=== PATIENT | female | born 2000 | race Caucasian/White ===

== ENCOUNTER → 2023-12-13 | Outpatient (CLI) | payer OTHER, SELFPAY ==
--- OUTSIDE RECORDS SUMMARY | 2023-12-13 10:02 | XMS RPT_ITS | CCD ---
Author Name Unknown Address [id number] [place] [address] Organization [facility] Care Team Providers Care Methods And Procedures Analyst Name Role Phone MIGUEL MONTERROSO Unavailable Unavailable REFERRED, SELF Unavailable Unavailable MARIELENA GARCIA Unavailable ARIANA CHOU Primary Care Unavailable HUBERT MARTINS Admitting Unavailable EFFIE COLLINS, DR ARIANA Crump Attending Estrada CHOU MD, DR ARIANA Crump Primary Care Estrada CHOU MD, DR ARIANA Crump Attending Estrada CHOU MD, DR ARIANA Crump Primary Care Estrada maradiaga Problems Active Problems Problem Classification Problem Date Documented Da te Episodic/Chronic Allergic reactions (2 sources) Other skin changes due to chronic exposure to nonionizing radiation; Translations: [Other skin changes due to chronic exposure to nonionizing radiation] Onset: 09-01-2022 Episodic Genitourinary symptoms and ill-defined conditions (2 sources) Frequency of micturition; Translations: [Frequency of micturition] Onset: 03-02-2023 Episodic Menstrual disorders (2 sources) Amenorrhea, unspecified; Translations: [Amenorrhea, unspecified] Onset: 09-14-2022 Chronic Past or Other Problems Problem Classification Problem Date Documented Da te Episodic/Chronic Other skin disorders (4 sources) Acne vulgaris; Translations: [Acne vulgaris] Onset: 09-01-2022 Episodic Results Test Name Value Interpretation Reference Range Facil ity Encounters Encounter Date Encounter Type Care Provider Facility Start: 03-02-2023 End: 03-07-[address] ARIANA CHOU MD Facility:[facility] Internal Medicine Start: 09-14-2022 End: 09-19-[address] ARIANA CHOU MD Facility:[facility] Start: 09-14-2022 End: 09-19-2022 Encounter for general adult medical examination without abnormal findings DR ARIANA CHOU MD Facility:[facility] Start: 09-01-2022 End: 09-05-2022 ambulatory ARIANA CHOU [facility] Start: 07-23-2017 End: 07-23-2017 Ambulatory MIGUEL MONTERROSO [facility] Payers Date Payer Category Payer Unknown [id number] 2022 Unknown [id number] 1999 Unknown [id number] 1999 Unknown [id number] 1999 Unknown [id number] Unknown [id number] Clinical Note 03-03-2023 Note Date & Type Note Facility 03-03-2023 Note . MICRO - Microbiology PROCEDURE: Urine Culture [*1] SOURCE: Urine BODY SITE: COLLECTED DATE/TIME: 03/02/2023 10:44 EDT RECEIVED DATE/TIME: 03/02/2023 11:56 EDT START DATE/TIME: 03/02/2023 11:56 EDT FREE TEXT SOURCE: FINAL REPORTS Final Report [] Verified Date/Time/Personnel: 03/03/2023 14:21 EDT <10,000 cfu/ml. No Significant growth. Sensitivity not indicated. Performing Locations *1: This test was performed at: [facility], [address] [place] [address], [address] [place] [address] ([place]) Summary Purpose Family History No Family History Records FoundNo Family History Records FoundNo Family History Records Found Advance Directives No Advanced Directives Records FoundNo Advanced Directives Records FoundNo Advanced Directives Records Found Additional Source Comments INFORMATION SOURCE (unrecogn ized section and content) DATE CREATED AUTHOR AUTHOR'S ORGANIZ ATION 09/05/2022 [facility] DATE CREATED AUTHOR AUTHOR'S ORGANIZ ATION 04/06/2023 Count includes the [facility] ([place]) FOR RECORDS PERTAINING TO PATIENTS WHO ARE OR HAVE BEEN ENROLLED IN A CHEMICAL DEPENDENCY/SUBSTANCEABUSE PROGRAM, SOME INFORMATION MAY BE OMITTED. This clinical summary was aggregated from multiple sources. Caution should be exercised in using it in the provision of clinical care. This summary normalizes information from multiple sources, and as a consequence, information in this document may materially change the coding, format and clinical context of patient data. In addition, data may be omitted in some cases. CLINICAL DECISIONS SHOULD BE BASED ON THE PRIMARY CLINICAL RECORDS. [facility] [facility]. provides no warranty or guarantee of the accuracy or completeness of information in this document.
[2023-12-13 10:03] LABS: Absolute Lymphocyte Count 1.67 X10^3/uL (0.83-4.51); Absolute Neutrophil Count 5.8 X10^3/uL (2.0-7.7); Basophil# 0.07 X10^3/uL; Basophil% 0.8 % (0-1); Eosinophil# 0.09 X10^3/uL; Eosinophils% 1.1 % (0-5); Hematocrit 42.7 % (37-47); Hemoglobin 13.9 g/dL (12.0-15.0); Lymphocyte # 1.67 X10^3/ul (0.83-4.51); Lymphocyte % 20.1 % (19-41); Mean Corp Hgb Conc 32.6 g/dL (32-36); Mean Corpuscular Hgb 29.7 pg (27.0-32.0); Mean Corpuscular Volume 91.2 fL (81-99); Mean Platelet Vol. 10.4 fl (6.2-12.0); Monocyte# 0.64 X10^3/uL; Monocyte% 7.7 % (0-10); NRBC Flagged by Analyzer 0 % (0-5); Neutrophil # 5.83 X10^3/uL (2.7-7.7); Neutrophil % 70.1 % (47-70); Platelet Count 261 K/mm3 (150-450); RBC Distribution Width CV 12.6 % (11.6-14.6); RBC Distribution Width SD 41.9 fl (35.1-43.9); Red Blood Count 4.68 M/mm3 (4.2-5.4); White Blood Count 8.3 K/mm3 (4.4-11.0)
[2023-12-13 11:23] LABS: HIV - WCH Non-Reactive (Nonreactive); Hepatitis B Surface Antigen Non-Reactive (Nonreactive); Hepatitis C Antibody Non-Reactive (Nonreactive); Rubella IgG Reactive (Nonreactive); Syphilis Antibodies Non-reactive
[2023-12-15 03:07] LABS: Chlamydia By Nucleic Acid AMP Negative (Negative); Gonococcus By Nucleic Acid AMP Negative (Negative)
[2023-12-22 18:17] LABS: HPV Reflexed? YES, CHARGE PATIENT
== END | disposition home or self-care (01) ==
PROVIDERS: PCP Internal Medicine; Referring Provider Advanced Practice Midwife; Visit Provider Advanced Practice Midwife
DX: Z34.90 Encounter for supervision of normal pregnancy, unspecified, unspecified trimester (principal)
CPT/HCPCS: 36415; 85025; 86703; 86762; 86780; 86803; 86850; 86900; 86901; 87086; 87340; 87491; 87591; 87624; 88175; G0145

== ENCOUNTER → 2024-04-02 | Outpatient (CLI) | payer OTHER, SELFPAY ==
[2024-04-02 11:20] LABS: Absolute Neutrophil Count 7.5 X10^3/uL (2.0-7.7); Basophil# 0.06 X10^3/uL; Basophil% 0.6 % (0-1); Eosinophil# 0.09 X10^3/uL; Eosinophils% 0.9 % (0-5); Hematocrit 38.7 % (37-47); Hemoglobin 12.8 g/dL (12.0-15.0); Lymphocyte % 18.5 % (19-41); Mean Corp Hgb Conc 33.1 g/dL (32-36); Mean Corpuscular Hgb 30.5 pg (27.0-32.0); Mean Corpuscular Volume 92.4 fL (81-99); Mean Platelet Vol. 10.1 fl (6.2-12.0); Monocyte# 0.68 X10^3/uL; Monocyte% 6.6 % (0-10); NRBC Flagged by Analyzer 0 % (0-5); Neutrophil # 7.45 X10^3/uL (2.7-7.7); Neutrophil % 72.3 % (47-70); Platelet Count 226 K/mm3 (150-450); RBC Distribution Width SD 44.1 fl (35.1-43.9); Red Blood Count 4.19 M/mm3 (4.2-5.4); White Blood Count 10.3 K/mm3 (4.4-11.0)
[2024-04-02 11:48] LABS: Glucose Challenge Gest 1H 50g 81 mg/dL (70-140)
[2024-04-02 13:00] LABS: HIV - WCH Non-Reactive (Nonreactive); Syphilis Antibodies Non-reactive
== END | disposition home or self-care (01) ==
LOC: PAVLAB 10:57
PROVIDERS: PCP Internal Medicine; Visit Provider Advanced Practice Midwife
DX: Z34.02 Encounter for supervision of normal first pregnancy, second trimester (principal); Z3A.00 Weeks of gestation of pregnancy not specified
CPT/HCPCS: 36415; 82950; 85025; 86703; 86780

== ENCOUNTER → 2024-05-02 | Outpatient (CLI) | payer OTHER, SELFPAY ==
--- NOTE | 2024-05-02 08:02 | US_ITS ---
STUDY: SECOND AND THIRD TRIMESTER OBSTETRICAL ULTRASOUND - LIMITED REASON FOR EXAM: Female, 23 years old well being LMP: PRIOR ULTRASOUND: None. TECHNIQUE: Transabdominal TECHNICAL QUALITY: Adequate. FINDINGS: There is a single intrauterine fetus. The fetus is in a cephalic presentation. There is demonstrated cardiac activity with a heart rate of 141 bpm. There is a normal amniotic fluid volume. The largest amniotic fluid pocket measures 4.9 cm. The amniotic fluid index (CAROLYN) is 14.2 cm. The placenta is anterior in location and is not low lying. There are Grade 0 placental changes. The cervix measures 3.6 cm cm in length. BIOMETRY: BPD: 7.8 cm: 31 weeks, 3 days HC: 30.0 cm: 33 weeks, 2 days AC: 26.7 cm: 30 weeks, 6 days FL: 5.7 cm: 30 weeks, 0 days Age by LMP: 30 weeks, 2 days. VICKY by LMP: 07/09/2024. age by prior US: weeks, days. VICKY by prior US: . age by current US: 32 weeks, 1 days. VICKY by current US: 06/26/2024. Estimated weight: 1625 grams, +/- 244 grams, 52 percentile. Gender: US/OB Limited With Biometrics IMPRESSION: Living intrauterine of 32 weeks 1 day as described above. Electronically Signed: Miguel Angel Goddard MD at 11:38 EDT ,
== END | disposition home or self-care (01) ==
LOC: OPUS 08:00
PROVIDERS: PCP Internal Medicine; Referring Provider Nurse Practitioner Women's Health; Visit Provider Nurse Practitioner Women's Health
DX: O26.849 Uterine size-date discrepancy, unspecified trimester (principal); Z3A.00 Weeks of gestation of pregnancy not specified
CPT/HCPCS: 76816

== ENCOUNTER → 2024-06-13 | Outpatient (CLI) | payer OTHER, SELFPAY | END | disposition home or self-care (01) | LOC: LABSPEC 16:58 | PROVIDERS: PCP Internal Medicine; Referring Provider Obstetrics & Gynecology; Visit Provider Obstetrics & Gynecology | DX: Z34.03 Encounter for supervision of normal first pregnancy, third trimester (principal) | CPT/HCPCS: 87081 ==

== ENCOUNTER 2024-06-25 11:45 | Outpatient (CLI) | payer OTHER, SELFPAY ==
[2024-06-25 12:13] VITALS: BMI 26.6
[2024-06-25 12:18] VITALS: BP 122/80; PULSE 72; RESP 16; TEMP 36.4; O2SAT 97
[2024-06-25 12:21] LABS: Hematocrit 40.2 % (37-47); Hemoglobin 13.2 g/dL (12.0-15.0); Mean Corp Hgb Conc 32.8 g/dL (32-36); Mean Corpuscular Hgb 29.7 pg (27.0-32.0); Mean Corpuscular Volume 90.5 fL (81-99); Mean Platelet Vol. 10.3 fl (6.2-12.0); Platelet Count 205 K/mm3 (150-450); RBC Distribution Width CV 13.1 % (11.6-14.6); RBC Distribution Width SD 43.2 fl (35.1-43.9); Red Blood Count 4.44 M/mm3 (4.2-5.4); White Blood Count 11.1 K/mm3 (4.4-11.0)
--- NOTE | 2024-06-25 12:22 | OB.TRI.HP_ITS ---
HPI - General HPI Narrative GALINA IBARRA, is a 23 y/o @ 37 weeks who presents [facility] with a migraine headache. PIH workup was ordered. Maternal Data Information VICKY Calculator Estimated Delivery Date Method Current WG Current Estimate 07/09/24 LMP (Certain) 38w 6d PFSH PFSH Medical History Depression Home Medications ?Medication ?Instructions ?Recorded ?Last Taken ?Type PNV 153-FA 400 mcg-om3 35 mg-dha tab PO 12/04/23 Unknown History 25 mg-epa 5 mg-fish oil chew tablet azelaic acid 15 % topical gel 1 applic topical BID 12/04/23 Unknown History clindamycin phosphate 1 % topical 1 applic topical BID PRN 12/04/23 Unknown History solution Allergy/AdvReac Type Severity Reaction Status Date / Time No Known Allergies Allergy Verified 06/25/24 12:13 Surgical History H/O foot surgery [place] teeth extracted Social History adopted: No household members: spouse current occupational status: employed current occupation: [employer] current occupational exposures/hazards: No pets and animals: No history of recent travel: No sexually active: Yes Smoking Status: Never smoker alcohol intake: current alcohol intake frequency: a few times a month details: not while substance use type: does not use well-balanced diet: daily or most days caffeine: Yes Type: coffee Number of servings: 1 eating out: rarely or never during the past year weight has: remained stable what type of physical activity do you participate in: running frequency: 3-4 times per week duration: 45-60 minutes/day tiffany/orthodoxy: Caodaism seatbelt use: always do you feel safe at home: Yes 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 History 1 Elective abortions Hx Para 0 Spontaneous abortions Hx # Term Pregnancies Ectopic pregnancies Hx # Pregnancies Multiple births # of living children Visit Details Expected Delivery Route/Plan Labor Preferences- CB/BF classes: discussed labor support person: Shiraz labor intervention preferences: open pain management options preferred: ok if epidural requested cut cord/dad catch: yes : wants PP control planned: discussed discussed possible routes of delivery and associated risks: [] special requests: [] Plans Covid status: discussed Flu vaccine: given Tdap vaccine: given Rhogam: deferred, FOB Rh neg LARC form signed: done movement and labor precautions reviewed. Problem list reviewed and updated with the most current plan of care details and appropriate orders placed. Relevant counseling for the gestational age provided. Continue routine care and follow up unless otherwise noted in visit notes/problem list details OB Flowsheet Initial Weight: Not Recorded Date -?-?-?-?-?-?-?-?-?-?-?-?- EGA Weight BP Urine Prot -?-?-?-?-?-?-?-?-?-?-?-?- Glucose FHR FuHt Pres Dilation -?-?-?-?-?-?-?-?-?-?-?-?- Effaced St Visit Note 12/13/23 -?-?-?-?-?-?-?-?-?-?-?-?- 10w 1d 156 lb 8 oz 127/81 -?-?-?-?-?-?-?-?-?-?-?-?- 175 -?-?-?-?-?-?-?-?-?-?-?-?- kw-CRL cons with dates. no concerns today. declines NIPT. 01/08/24 -?-?-?-?-?-?-?-?-?-?-?-?- 13w 6d 159 lb 2 oz 118/79 -?-?-?-?-?-?-?-?-?-?-?-?- -?-?-?-?-?-?-?-?-?-?-?-?- kw- no vb/crampi ng. positive movement and fht noted on ultrasound. FOB blood typing for RH neg-paper order given. 02/06/24 -?-?-?-?-?-?-?-?-?-?-?--?- 18w 0d 164 lb 110/70 Negative -?-?-?-?-?-?-?-?-?-?-?-?- Negative 151 -?-?-?-?-?-?-?-?-?-?-?-?- MH-No VB or cram ping. MFM US 02/14. Denies concerns. 03/04/24 -?-?-?-?-?-?-?-?-?-?-?-?- 21w 6d 163 lb 111/73 Negative -?-?-?-?-?-?-?-?-?-?-?-?- Negative 145 22 -?-?-?-?-?-?--?-?-?-?-?-?- SM- no vb mary mina reviewed US 03/31/24 -?-?-?-?-?-?-?-?-?-?-?-?- 25w 5d 171 lb 133/79 Negative -?-?-?-?-?-?-?-?-?-?-?-?- Negative 140 25 -?-?-?-?-?-?-?-?-?-?-?-?- kw- no vb/ctx. g ood fm. 28 week labs discussed. LARC done. 04/16/24 -?-?-?-?-?-?-?-?-?-?-?-?- 28w 0d 167 lb 8 oz 120/74 Nega tive -?-?-?-?-?-?-?-?-?-?-?-?- Negative 144 26 -?-?-?-?-?-?-?-?-?-?-?-?- MH-NO VB, LOF. G ood Fm. Had N&V last night/thinks food poisoning. Growth US ordered. Larc, tdap. 05/02/24 -?-?-?-?-?-?-?-?-?-?-?-?- 30w 2d 172 lb 2 oz 113/75 Nega tive -?-?-?-?-?-?-?-?-?-?-?-?- Negative 140 28 31 -?-?-?-?-?-?-?-?-?-?-?-?- Sm- no v lof goo d fm no regular ctx 05/12/24 -?-?-?-?-?-?-?-?-?-?-?-?- 31w 5d 173 lb 119/81 -?-?-?-?-?-?-?-?-?-?-?--?- 130 31 -?-?-?-?-?-?-?-?-?-?-?-?- KW- no vb/lof/ct x. good fm. Pepcid for acid reflux. 05/26/24 -?-?-?-?-?-?-?-?-?-?-?-?- 33w 5d 173 lb 8 oz 124/79 Nega tive -?-?-?-?-?-?-?-?-?-?-?-?- Negative 128 32 -?-?-?-?-?-?-?-?-?-?-?-?- KW- no vb/lof/ct x. good fm. doing well 06/13/24 -?-?-?-?-?-?-?-?-?-?-?-?- 36w 2d 174 lb 127/84 Negative -?-?-?-?-?-?-?-?-?-?-?-?- Negative 140 35 Cephalic -?-?-?-?-?-?-?-?-?-?-?-?- KW- no vb/lof/ct x. good fm. GBS done. declines pelvic exam today. 06/19/24 -?-?-?-?-?-?-?-?-?-?-?-?- 37w 1d 174 lb 133/79 Negative -?-?-?-?-?-?-?-?-?-?-?-?- Negative 135 35 Cephalic -?-?-?-?-?-?-?-?-?-?-?-?- SM- no vb lof go od fm n regular ctx, discussed fm precautions and CAROLYN check indications 06/23/24 -?-?-?-?-?-?-?-?-?-?-?-?- 37w 5d 175 lb 2 oz 121/79 Nega tive -?-?-?-?-?-?-?-?-?-?-?-?- Negative 140 37 Cephalic -?-?-?-?-?-?-?-?-?-?-?-?- JV- no lof, vagi nal bleeding, or dec fm. declines exam. FH appropriate today. ROS Constitutional Constitutional: Reports systems reviewed and no addt'l complaints, except as documented Gastrointestinal Gastrointestinal: Denies bloating, constipation, cramping, diarrhea, nausea or vomiting Genitourinary Genitourinary: Reports other Details: Denies vaginal odor, vaginal bleeding, or vaginal discharge ; Denies difficulty urinating or flank pain NST FHR Rate Baby A Baseline: 110-120 Variability:: Moderate Accelerations:: 15 x 15 Decelerations:: None NST Reactive:: Yes FHR Category:: Category I Uterine Activity:: occasional contractions Assessment & Plan (1) Migraine with aura: (2) Uterine size date discrepancy : COMMENT: growth US:52% (3) Rh negative status during : QUALIFIERS: Trimester: second trimester Qualified Code(s): O26.892 - Other specified related conditions, second trimester; Z67.91 - Unspecified blood type, Rh negative COMMENT: FOB Shiraz Rust negative. (4) Supervision of normal first : QUALIFIERS: Trimester: third trimester Qualified Code(s): Z34.03 - Encounter for supervision of normal first , third trimester COMMENT: PRR, , VICKY 07/09/24, surprise Shiraz. Normal glucose. (5) FHx: Down's syndrome: COMMENT: Pt younger sister (6) : QUALIFIERS: Weeks of gestation: 37 weeks Qualified Code(s): Z3A.37 - 37 weeks gestation of COMMENT: GBS negative, normal anatomy, declines genetic & carrier, and AFP testing PLAN: Plan PIH work up negative, suspect migraine with aura. pt declines iv therapy Charges/Coding Multi Select Codes Urinary/Genital Urinary/Genital CPT Codes: 24616-57 non-stress test Interp
--- NOTE | 2024-06-25 12:22 | OB.TRI.NOTE ---
HPI - General HPI Narrative GALINA IBARRA, is a 23 y/o @ 37 weeks who presents [facility] with a migraine headache. PIH workup was ordered. Maternal Data Information VICKY Calculator Estimated Delivery Date Method Current WG Current Estimate 07/09/24 LMP (Certain) 38w 6d PFSH PFSH Medical History Depression Home Medications ?Medication ?Instructions ?Recorded ?Last Taken ?Type PNV 153-FA 400 mcg-om3 35 mg-dha tab PO 12/04/23 Unknown History 25 mg-epa 5 mg-fish oil chew tablet azelaic acid 15 % topical gel 1 applic topical BID 12/04/23 Unknown History clindamycin phosphate 1 % topical 1 applic topical BID PRN 12/04/23 Unknown History solution Allergy/AdvReac Type Severity Reaction Status Date / Time No Known Allergies Allergy Verified 06/25/24 12:13 Surgical History H/O foot surgery [place] teeth extracted Social History adopted: No household members: spouse current occupational status: employed current occupation: [employer] current occupational exposures/hazards: No pets and animals: No history of recent travel: No sexually active: Yes Smoking Status: Never smoker alcohol intake: current alcohol intake frequency: a few times a month details: not while substance use type: does not use well-balanced diet: daily or most days caffeine: Yes Type: coffee Number of servings: 1 eating out: rarely or never during the past year weight has: remained stable what type of physical activity do you participate in: running frequency: 3-4 times per week duration: 45-60 minutes/day tiffany/yazidi: Lutheran seatbelt use: always do you feel safe at home: Yes 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[employer] History 1 Elective abortions Hx Para 0 Spontaneous abortions Hx # Term Pregnancies Ectopic pregnancies Hx # Pregnancies Multiple births # of living children Visit Details Expected Delivery Route/Plan Labor Preferences- CB/BF classes: discussed labor support person: Shiraz labor intervention preferences: open pain management options preferred: ok if epidural requested cut cord/dad catch: yes : wants PP control planned: discussed discussed possible routes of delivery and associated risks: [] special requests: [] Plans Covid status: discussed Flu vaccine: given Tdap vaccine: given Rhogam: deferred, FOB Rh neg LARC form signed: done movement and labor precautions reviewed. Problem list reviewed and updated with the most current plan of care details and appropriate orders placed. Relevant counseling for the gestational age provided. Continue routine care and follow up unless otherwise noted in visit notes/problem list details OB Flowsheet Initial Weight: Not Recorded Date <del>?</del> EGA Weight BP Urine Prot <del>?</del> Glucose FHR FuHt Pres Dilation <del>?</del> Effaced St Visit Note 12/13/23 <del>?</del> 10w 1d 156 lb 8 oz 127/81 <del>?</del> 175 <del>?</del> kw-CRL cons with dates. no concerns today. declines NIPT. 01/08/24 <del>?</del> 13w 6d 159 lb 2 oz 118/79 <del>?</del> <del>?</del> kw- no vb/cramping. positive movement and fht noted on ultrasound. FOB blood typing for RH neg-paper order given. 02/06/24 <del>?</del> 18w 0d 164 lb 110/70 Negative <del>?</del> Negative 151 <del>?</del> MH-No VB or cramping. [facility] 02/14. Denies concerns. 03/04/24 <del>?</del> 21w 6d 163 lb 111/73 Negative <del>?</del> Negative 145 22 <del>?</del> SM- no vb cramping reviewed US 03/31/24 <del>?</del> 25w 5d 171 lb 133/79 Negative <del>?</del> Negative 140 25 <del>?</del> kw- no vb/ctx. good fm. 28 week labs discussed. LARC done. 04/16/24 <del>?</del> 28w 0d 167 lb 8 oz 120/74 Negative <del>?</del> Negative 144 26 <del>?</del> MH-NO VB, LOF. Good Fm. Had N&V last night/thinks food poisoning. Growth US ordered. Larc, tdap. 05/02/24 <del>?</del> 30w 2d 172 lb 2 oz 113/75 Negative <del>?</del> Negative 140 28 31 <del>?</del> Sm- no v lof good fm no regular ctx 05/12/24 <del>?</del> 31w 5d 173 lb 119/81 <del>?</del> 130 31 <del>?</del> KW- no vb/lof/ctx. good fm. Pepcid for acid reflux. 05/26/24 <del>?</del> 33w 5d 173 lb 8 oz 124/79 Negative <del>?</del> Negative 128 32 <del>?</del> KW- no vb/lof/ctx. good fm. doing well 06/13/24 <del>?</del> 36w 2d 174 lb 127/84 Negative <del>?</del> Negative 140 35 Cephalic <del>?</del> KW- no vb/lof/ctx. good fm. GBS done. declines pelvic exam today. 06/19/24 <del>?</del> 37w 1d 174 lb 133/79 Negative <del>?</del> Negative 135 35 Cephalic <del>?</del> SM- no vb lof good fm n regular ctx, discussed fm precautions and CAROLYN check indications 06/23/24 <del>?</del> 37w 5d 175 lb 2 oz 121/79 Negative <del>?</del> Negative 140 37 Cephalic <del>?</del> JV- no lof, vaginal bleeding, or dec fm. declines exam. FH appropriate today. ROS Constitutional Constitutional: Reports systems reviewed and no addt'l complaints, except as documented Gastrointestinal Gastrointestinal: Denies bloating, constipation, cramping, diarrhea, nausea or vomiting Genitourinary Genitourinary: Reports other Details: Denies vaginal odor, vaginal bleeding, or vaginal discharge ; Denies difficulty urinating or flank pain NST FHR Rate Baby A Baseline: 110-120 Variability:: Moderate Accelerations:: 15 x 15 Decelerations:: None NST Reactive:: Yes FHR Category:: Category I Uterine Activity:: occasional contractions Assessment & Plan (1) Migraine with aura: (2) Uterine size date discrepancy : COMMENT: growth US:52% (3) Rh negative status during : QUALIFIERS: Trimester: second trimester Qualified Code(s): O26.892 - Other specified related conditions, second trimester; Z67.91 - Unspecified blood type, Rh negative COMMENT: FOB Shiraz Hal O negative. (4) Supervision of normal first : QUALIFIERS: Trimester: third trimester Qualified Code(s): Z34.03 - Encounter for supervision of normal first , third trimester COMMENT: PRR, , VICKY 07/09/24, surprise Shiraz. Normal glucose. (5) FHx: Down's syndrome: COMMENT: Pt younger sister (6) : QUALIFIERS: Weeks of gestation: 37 weeks Qualified Code(s): Z3A.37 - 37 weeks gestation of COMMENT: GBS negative, normal anatomy, declines genetic & carrier, and AFP testing PLAN: Plan PIH work up negative, suspect migraine with aura. pt declines iv therapy Charges/Coding Multi Select Codes Urinary/Genital Urinary/Genital CPT Codes: 56253-16 non-stress test Interp
[2024-06-25 12:26] VITALS: PULSE 79; O2SAT 97
[2024-06-25 12:32] LABS: Protein, Urine (Random) 18.4 mg/dL (<11.9); Protein:Creat Ratio 245 mg/g CRE (0-200)
[2024-06-25 12:34] VITALS: BP 117/74; PULSE 73
[2024-06-25 12:37] LABS: AST(SGOT) 19 U/L (15-37); Alanine Aminotransfer ALT/SGPT 13 U/L (13-56); Creatinine, Serum 0.57 mg/dL (0.55-1.02); EST Glomerular Filtration Rate 137 mL/min (>60); Est Glom Filt Rate - Afr Amer 165 mL/min (>60); Uric Acid 4.3 mg/dL (2.6-6.0)
[2024-06-25 12:47] LABS: Bedside Glucose 80 mg/dL (74-106)
[2024-06-25 14:57] VITALS: BP 139/92; PULSE 96; O2SAT 99
== END 2024-06-25 12:45 | disposition home or self-care (01) ==
LOC: WPOUT 11:50 → WP 11:51
PROVIDERS: PCP Internal Medicine; Referring Provider Obstetrics & Gynecology; Visit Provider Obstetrics & Gynecology
DX: O99.353 Diseases of the nervous system complicating pregnancy, third trimester (principal); G43.109 Migraine with aura, not intractable, without status migrainosus; O26.843 Uterine size-date discrepancy, third trimester; O26.893 Other specified pregnancy related conditions, third trimester; Z67.91 Unspecified blood type, Rh negative; Z3A.00 Weeks of gestation of pregnancy not specified; Z82.79 Family history of other congenital malformations, deformations and chromosomal abnormalities
CPT/HCPCS: 36415; 59025; 59050; 82565; 82570; 82962; 84156; 84450; 84460; 84550; 85027; 99221; G0378

== ENCOUNTER 2024-07-10 01:39 | Inpatient (IN) | payer OTHER, SELFPAY ==
[2024-07-10] VITALS (30 sets, daily range): BP systolic 111–137; BP diastolic 58–85; PULSE 62–151; RESP 15–17; TEMP 36.6–36.8; O2SAT 84–100; BMI 26.7
[2024-07-10] MEDS: Ondansetron 4 MG/2 ML Vial IV (01:50)
[2024-07-10 01:59] LABS: Absolute Lymphocyte Count 2.22 X10^3/uL (0.83-4.51); Absolute Neutrophil Count 9.6 X10^3/uL (2.0-7.7); Basophil# 0.06 X10^3/uL; Basophil% 0.5 % (0-1); Eosinophil# 0.05 X10^3/uL; Eosinophils% 0.4 % (0-5); Hematocrit 39.9 % (37-47); Hemoglobin 13.3 g/dL (12.0-15.0); Lymphocyte # 2.22 X10^3/ul (0.83-4.51); Lymphocyte % 16.8 % (19-41); Mean Corp Hgb Conc 33.3 g/dL (32-36); Mean Corpuscular Hgb 29.8 pg (27.0-32.0); Mean Corpuscular Volume 89.5 fL (81-99); Mean Platelet Vol. 10.6 fl (6.2-12.0); Monocyte# 1.18 X10^3/uL; Monocyte% 8.9 % (0-10); NRBC Flagged by Analyzer 0 % (0-5); Neutrophil # 9.58 X10^3/uL (2.7-7.7); Neutrophil % 72.4 % (47-70); Platelet Count 214 K/mm3 (150-450); RBC Distribution Width CV 13.2 % (11.6-14.6); Red Blood Count 4.46 M/mm3 (4.2-5.4); White Blood Count 13.2 K/mm3 (4.4-11.0)
[2024-07-10] MEDS: Lactated Ringers 1,000 ML 999 ML IV (02:00)
[2024-07-10 02:37] LABS: Syphilis Antibodies Non-reactive
[2024-07-10] MEDS: Lactated Ringers 1,000 ML 200 ML IV (03:05)
[2024-07-10] MEDS: Oxytocin 15 Units/NS 250ml 15 UNITS/250 ML IV.SOLN 334 UNITS IV (03:40)
--- NOTE | 2024-07-10 03:46 | HP.PCM.OB_ITS ---
HPI - General General Date of Admission: 07/10/24 HPI Narrative GALINA IBARRA, is a 23 F who presents IAL 5 c mregular ctx no vb lof admits good fm Maternal Data Information VICKY Calculator Estimated Delivery Date Method Current WG Current Estimate 07/09/24 LMP (Certain) 40w 1d PFSH PFSH Medical History Depression Home Medications ?Medication ?Instructions ?Recorded ?Last Taken ?Type PNV 153-FA 400 mcg-om3 35 mg-dha 1 tab PO DAILY 12/04/23 07/09/24 History 25 mg-epa 5 mg-fish oil chew tablet famotidine 20 mg tablet (Pepcid) 20 mg PO QDAY PRN indigestion 07/09/24 07/09/24 History Allergy/AdvReac Type Severity Reaction Status Date / Time No Known Allergies Allergy Verified 07/10/24 01:48 Surgical History H/O foot surgery Elrama teeth extracted Social History adopted: No household members: spouse current occupational status: employed current occupation: [employer] current occupational exposures/hazards: No pets and animals: No history of recent travel: No sexually active: Yes Smoking Status: Never smoker alcohol intake: current alcohol intake frequency: a few times a month details: not while substance use type: does not use well-balanced diet: daily or most days caffeine: Yes Type: coffee Number of servings: 1 eating out: rarely or never during the past year weight has: remained stable what type of physical activity do you participate in: running frequency: 3-4 times per week duration: 45-60 minutes/day tiffany/cheondoism: [employer] seatbelt use: always do you feel safe at home: Yes 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 History 1 Elective abortions Hx Para 0 Spontaneous abortions Hx # Term Pregnancies Ectopic pregnancies Hx # Pregnancies Multiple births # of living children Visit Details Expected Delivery Route/Plan Labor Preferences- CB/BF classes: discussed labor support person: Shiraz labor intervention preferences: open pain management options preferred: ok if epidural requested cut cord/dad catch: yes : wants PP control planned: discussed discussed possible routes of delivery and associated risks: [] special requests: [] Plans Covid status: discussed Flu vaccine: given Tdap vaccine: given Rhogam: deferred, FOB Rh neg LARC form signed: done movement and labor precautions reviewed. Problem list reviewed and updated with the most current plan of care details and appropriate orders placed. Relevant counseling for the gestational age provided. Continue routine care and follow up unless otherwise noted in visit notes/problem list details OB Flowsheet Initial Weight: 156 lb Date -?-?-?-?-?-?-?-?-?-?-?-?- EGA Weight BP Urine Prot -?-?-?-?-?-?-?-?-?-?-?-?- Glucose FHR FuHt Pres Dilation -?-?-?-?-?-?-?-?-?-?-?-?- Effaced St Visit Note 12/13/23 -?-?-?-?-?-?-?-?-?-?-?-?- 10w 1d 156 lb 8 oz (+8 oz) 127/81 -?-?-?-?-?-?-?-?-?-?-?-?- 175 -?-?-?-?-?-?-?-?-?-?-?-?- kw-CRL cons with dates. no concerns today. declines NIPT. 01/08/24 -?-?-?-?-?-?-?-?-?-?-?-?- 13w 6d 159 lb 2 oz (+3 lb 2 oz) 118/79 -?-?-?-?-?-?-?-?-?-?-?-?- -?-?-?-?-?-?-?-?-?-?-?-?- kw- no vb/crampi ng. positive movement and fht noted on ultrasound. FOB blood typing for RH neg-paper order given. 02/06/24 -?-?-?-?-?-?-?-?-?-?-?-?- 18w 0d 164 lb (+8 lb) 110/70 Negative -?-?-?-?-?-?-?-?-?-?-?-?- Negative 151 -?-?-?-?-?-?-?-?-?-?-?-?- MH-No VB or cram ping. MFM US 02/14. Denies concerns. 03/04/24 -?-?-?-?-?-?-?-?-?-?-?-?- 21w 6d 163 lb (+7 lb) 111/73 Negative -?-?-?-?-?-?-?-?-?-?-?-?- Negative 145 22 -?-?-?-?-?-?-?-?-?-?-?-?- SM- no vb mary mina reviewed US 03/31/24 -?-?-?-?-?-?-?-?-?-?-?-?- 25w 5d 171 lb (+15 lb) 133/79 Negative -?-?-?-?-?-?-?-?-?-?-?-?- Negative 140 25 -?-?-?-?-?-?-?-?-?-?-?--?- kw- no vb/ctx. g ood fm. 28 week labs discussed. LEONIDES done. 04/16/24 -?-?-?-?-?-?-?-?-?-?-?-?- 28w 0d 167 lb 8 oz (+11 lb 8 oz) 120/74 Negative -?-?-?-?-?-?-?-?-?-?-?-?- Negative 144 26 -?-?-?-?-?-?-?-?-?-?-?-?- MH-NO VB, LOF. G ood Fm. Had N&V last night/thinks food poisoning. Growth US ordered. Leonides, tdap. 05/02/24 -?-?-?-?-?-?-?-?-?-?-?-?- 30w 2d 172 lb 2 oz (+16 lb 2 oz) 113/75 Negative -?-?-?-?-?-?-?-?-?-?-?-?- Negative 140 28 31 -?-?-?-?-?-?-?-?-?-?-?-?- Sm- no v lof goo d fm no regular ctx 05/12/24 -?-?-?-?-?-?-?-?-?-?-?-?- 31w 5d 173 lb (+17 lb) 119/81 -?-?-?-?-?-?-?-?-?-?-?-?- 130 31 -?-?-?-?-?-?-?-?-?-?-?-?- KW- no vb/lof/ct x. good fm. Pepcid for acid reflux. 05/26/24 -?-?-?-?-?-?-?-?-?-?-?-?- 33w 5d 173 lb 8 oz (+17 lb 8 oz) 124/79 Negative -?-?-?-?-?-?-?-?-?-?-?-?- Negative 128 32 -?-?-?-?-?-?-?-?-?-?-?-?- KW- no vb/lof/ct x. good fm. doing well 06/13/24 -?-?-?-?-?-?-?-?-?-?-?-?- 36w 2d 174 lb (+18 lb) 127/84 Negative -?-?-?-?-?-?-?-?-?-?-?-?- Negative 140 35 Cephalic -?-?-?-?-?-?-?-?-?-?-?-?- KW- no vb/lof/ct x. good fm. GBS done. declines pelvic exam today. 06/19/24 -?-?-?-?-?-?-?-?-?-?-?-?- 37w 1d 174 lb (+18 lb) 133/79 Negative -?-?-?-?-?-?-?-?-?-?-?-?- Negative 135 35 Cephalic -?-?-?-?-?-?-?-?-?-?-?-?- SM- no vb lof go od fm n regular ctx, discussed fm precautions and CAROLYN check indications 06/23/24 -?-?-?-?-?-?-?-?-?-?-?-?- 37w 5d 175 lb 2 oz (+19 lb 2 oz) 121/79 Negative -?-?-?-?-?-?-?-?-?-?-?-?- Negative 140 37 Cephalic -?-?-?-?-?-?-?-?-?-?-?-?- JV- no lof, vagi nal bleeding, or dec fm. declines exam. FH appropriate today. 07/04/24 -?-?-?-?-?-?-?-?-?-?-?-?- 39w 2d 178 lb 8 oz (+22 lb 8 oz) 113/78 Negative -?-?-?-?-?-?-?-?-?-?-?-?- Negative 130 38 Cephalic 1 -?-?-?-?-?-?-?-?-?-?-?-?- 50 -3 LC- no lof /vb/ctx, good fm. gbs neg. no concerns. LC- no lof/vb/ctx, good fm. gbs neg. no concerns. may desire membrane sweep next visit. 07/09/24 -?-?-?-?-?-?-?-?-?-?-?-?- 40w 0d 177 lb (+21 lb) 124/84 Negative -?-?-?-?-?-?-?-?-?-?-?-?- Negative 140 35 Cephalic 3 .5 -?-?-?-?-?-?-?-?-?-?-?-?- 70 -2 SM- no vb lof good fm no regular ctx, irregular. membranes swept SM- no vb lof good fm no reg ular ctx, irregular. membranes swept. carolyn 11 cm NST FHR Rate Baby A Baseline: 140 Variability:: Moderate Accelerations:: 15 x 15 Decelerations:: None NST Reactive:: Yes FHR Category:: Category I Uterine Activity:: q3-5 ROS Constitutional Constitutional: Reports systems reviewed and no addt'l complaints, except as documented ENT HEENT: Reports systems reviewed and no addt'l complaints, except as documented Cardiovascular Cardiovascular: Reports systems reviewed and no addt'l complaints, except as documented Respiratory/Chest Respiratory/Chest: Reports systems reviewed and no addt'l complaints, except as documented Gastrointestinal Gastrointestinal: Reports systems reviewed and no addt'l complaints, except as documented and nausea; Denies abdominal pain Genitourinary Genitourinary: Reports systems reviewed and no addt'l complaints, except as documented, contractions Details: present and frequency (regular ) and movement Details: present Musculoskeletal Musculoskeletal: Reports systems reviewed and no addt'l complaints, except as documented Integumentary Integumentary: Reports as per HPI Neurologic Neurologic: Reports systems reviewed and no addt'l complaints, except as documented Endocrine Endocrinology: Reports systems reviewed and no addt'l complaints, except as documented Vital Signs Vital Signs Vital Signs: 07/10/24 02:27 07/10/24 02:27 07/10/24 02:28 Pulse Rate 86 70 Blood Pressure BP Systolic BP Diastolic Pulse Ox 93 07/10/24 02:28 07/10/24 02:33 07/10/24 02:33 Pulse Rate 76 Blood Pressure 137/84 H BP Systolic 137 BP Diastolic 84 Pulse Ox 99 07/10/24 02:33 07/10/24 02:37 07/10/24 02:37 Pulse Rate 78 Blood Pressure 131/85 H BP Systolic 131 BP Diastolic 85 Pulse Ox 97 07/10/24 02:39 07/10/24 02:39 07/10/24 02:42 Pulse Rate 89 Blood Pressure 125/58 H BP Systolic 125 BP Diastolic 58 Pulse Ox 98 07/10/24 02:42 07/10/24 02:42 07/10/24 02:44 Pulse Rate 75 81 Blood Pressure BP Systolic BP Diastolic Pulse Ox 84 07/10/24 02:44 07/10/24 02:47 07/10/24 02:47 Pulse Rate 108 H Blood Pressure 128/62 H BP Systolic 128 BP Diastolic 62 Pulse Ox 100 07/10/24 02:48 07/10/24 02:48 07/10/24 02:50 Pulse Rate 74 100 Blood Pressure BP Systolic BP Diastolic Pulse Ox 88 07/10/24 02:50 07/10/24 02:55 07/10/24 02:55 Pulse Rate 100 Blood Pressure BP Systolic BP Diastolic Pulse Ox 99 99 07/10/24 02:59 07/10/24 02:59 07/10/24 03:00 Pulse Rate 151 H 98 Blood Pressure 120/64 BP Systolic 120 BP Diastolic 64 Pulse Ox 07/10/24 03:00 07/10/24 03:05 07/10/24 03:05 Pulse Rate 101 H Blood Pressure BP Systolic BP Diastolic Pulse Ox 100 100 07/10/24 03:10 07/10/24 03:10 07/10/24 03:15 Pulse Rate 118 H 90 Blood Pressure BP Systolic BP Diastolic Pulse Ox 100 07/10/24 03:15 Pulse Rate Blood Pressure BP Systolic BP Diastolic Pulse Ox 99 Weight Weight: 176 lb Body Mass Index (BMI) 26.7 Physical Exam Const alert, oriented x3 and healthy appearing Constitutional Narrative: uncomfortable with contractions HEENT normocephalic and moist oral mucous membranes Head and Scalp: atraumatic Neck full ROM, no lymphadenopathy, supple and thyroid normal General: trachea midline Thyroid: thyroid normal Lymph Lymphatic: no lymphadenopathy noted Chest inspection of chest normal Resp normal respiratory effort Cardio regular rate GI normal to inspection, nondistended, normoactive bowel sounds, soft to palpation and non-tender Inspection: gravid external exam normal Bimanual Exam - Vag & Uterus: uterus non-tender Manual OB Exam: estimated gestational size appropriate, presentation cephalic, dilated, effaced and station Extremity normal to inspection General Extremity: Negative for edema Skin no rashes or lesions noted Neuro deep tendon reflexes 2+ bilaterally Motor Exam: strength 5/5 throughout and clonus absent Psych mental status grossly normal Labs Labs Labs: Blood Type A NEGATIVE Antibody Screen NEGATIVE Hct 39.9 % (37-47) Hgb 13.3 g/dL (12.0-15.0) Obstetrics Ultrasound Syphilis Total Ab Non-reactive Rubella IgG Antibody Reactive (Nonreactive) Hep Bs Antigen Non-Reactive (Nonreactive) Hepatitis C Antibody Non-Reactive (Nonreactive) Chlamydia DNA (GERRY) Negative (Negative) N.gonorrhoeae DNA (GERRY) Negative (Negative) HIV 1&2 Antibody Non-Reactive (Nonreactive) Glucose 1 Hr 50 gm 81 mg/dL (70-140) Assessment & Plan (1) Rh negative status during : QUALIFIERS: Trimester: second trimester Qualified Code(s): O26.892 - Other specified related conditions, second trimester; Z67.91 - Unspecified blood type, Rh negative COMMENT: FOB Shiraz Hal O negative. (2) Supervision of normal first : QUALIFIERS: Trimester: third trimester Qualified Code(s): Z34.03 - Encounter for supervision of normal first , third trimester COMMENT: PRR, , VICKY 07/09/24, surprise Shiraz. Normal glucose. (3) FHx: Down's syndrome: COMMENT: Pt younger sister (4) : QUALIFIERS: Weeks of gestation: 40 weeks Qualified Code(s): Z3A.40 - 40 weeks gestation of COMMENT: GBS negative, normal anatomy, declines genetic & carrier, and AFP testing (5) Active labor at term: PLAN: Plan Patient presents IAL, plan expectant management for , pitocin/AROM PRN if needed. Pain management: plans epidural. GBS neg. Management of any complications: none I have reviewed the [facility] and made any clinically relevant updates.
--- NOTE | 2024-07-10 03:47 | EX.PCM.OBRPT ---
Assessment & Plan (1) Active labor at term: (2) Rh negative status during : QUALIFIERS: Trimester: second trimester Qualified Code(s): O26.892 - Other specified related conditions, second trimester; Z67.91 - Unspecified blood type, Rh negative COMMENT: FOMohsen Weldon Hal O negative. (3) Supervision of normal first : QUALIFIERS: Trimester: third trimester Qualified Code(s): Z34.03 - Encounter for supervision of normal first , third trimester COMMENT: PRR, , VICKY 07/09/24, surprise Shiraz. Normal glucose. (4) FHx: Down's syndrome: COMMENT: Pt younger sister (5) : QUALIFIERS: Weeks of gestation: 40 weeks Qualified Code(s): Z3A.40 - 40 weeks gestation of COMMENT: GBS negative, normal anatomy, declines genetic & carrier, and AFP testing (6) Vaginal delivery: COMMENT: SM IAL 40 boy Justin Maternal Data Information VICKY Calculator Estimated Delivery Date Method Current WG Current Estimate 07/09/24 LMP (Certain) 40w 1d Vaginal Delivery Operative Information Pre-Operative Diagnosis: see a/p diagnoses Post-Operative Diagnosis: same Surgery / Procedure Performed: Spontaneous Vaginal Delivery Type of Anesthesia: Epidural Special Medications: none Estimated Blood Loss: 200 Fluids Replaced: crystalloid Findings Description of Procedure: Patient began pushing and delivered the head in the NINI presentation. The head was delivered atraumatically . The anterior and posterior shoulders delivered without complication followed by the rest of the infant and the infant was placed on the maternal abdomen. Delayed cord clamping was employed for approximately 60 seconds. Cord was clamped and cut and gentle traction was applied to the cord and the placenta delivered spontaneously immediately following it was noted to be intact with three-vessel cord. The perineum and vagina were inspected and noted to have a second degree perineal laceration which was repaired in the usual fashion with 3-0 vicryl rapide. . EBL was 200 cc. Patient and infant tolerated delivery well. Amniotic Fluid Description: Clear Placental Delivery Description: Spontaneous Placenta Disposition: [facility] Cord Vessel Description: 3 Vessels Cord Entanglement: None Delayed Cord Clamping: Yes Post Vaginal Delivery Medications Given After Delivery: IV Pitocin Episiotomy Description: None Complication Complications: None Procedures Urinary/Genital 52xxx-59xxx: [id number] Vaginal Delivery [facility]
--- NOTE | 2024-07-10 03:48 | DCINST_ITS ---
Discharge Instructions Diet Discharge Diet: No restrictions Activity Discharge Activity: Return to Normal Activity, May Not Drive (while taking narcotic pain medications.) and May Shower May resume sexual activity in: 4-6 weeks Dressing / Incision Call your doctor if your incision/area has: Continuous Slow Oozing, Sudden Increased Bleeding, Increased Pain/ Swelling, Increased Redness and Foul Smelling Discharge Follow Up Care Please Follow Up With: Gris Grant MD When: Call [phone] to make an appointment with your doctor in 6 weeks. If you had elevated blood pressure or 4th degree laceration, you will need to be seen in 2 weeks. Test Results: Test results from this visit will be discussed in further detail at your follow- up appointment, if applicable. Discharge Plan Admission Admit Date/Time: 07/10/24 01:39 Attending Provider: Gris Grant Primary Care Provider: Velvet Sutton Discharge Orders/Prescriptions Prescriptions: No Action PNV no.[id number] 400 mcg-35 mg- 25 mg-5 mg tablet,chewable 1 tab PO DAILY famotidine [Pepcid] 20 mg tablet 20 mg PO QDAY PRN (Reason: indigestion) Referrals / Follow Up: Velvet Sutton MD [Primary Care Provider] - Disposition Disposition (needs filled in before D/C Order can be placed): Home, Self Care
[2024-07-10] MEDS: Oxytocin 15 Units/NS 250ml 15 UNITS/250 ML IV.SOLN 83 UNITS IV (04:04)
[2024-07-10] MEDS: Acetaminophen 500 MG Tablet 1000 MG PO (20:48)
[2024-07-11] VITALS: BP 110/76; PULSE 68; RESP 16; TEMP 36.8; O2SAT 98
[2024-07-11] MEDS: Naproxen 500 MG Tablet PO (03:36)
[2024-07-11 04:00] VITALS: BP 122/75; PULSE 70; RESP 16; TEMP 36.9; O2SAT 98
--- NOTE | 2024-07-11 07:42 | PCM.PN.OB ---
Subjective Subjective Patient doing well without complaints. Tolerating PO. Ambulating and voiding without difficulty. feeding well. Denies chest pain, shortness of breath, calf pain/swelling, fevers, chills, lightheadedness. Objective Data Objective Data Vital Signs: Vital Signs Temp Pulse Resp BP Pulse Ox O2 Del Method 98.4 F 70 16 122/75 H 98 Room Air 07/11/24 04:00 07/11/24 04:00 07/11/24 04:00 07/11/24 04:00 07/11/24 04:00 07/11/24 04:00 Oxygen Delivery Method Room Air Weight: 176 lb Body Mass Index (BMI) 26.7 Intake & Output: Intake and Output for Last 24 Hours 07/09/24 07/10/24 07/11/24 23:59 23:59 23:59 Intake Total 2500 / 2500 Output Total 1200 / 1200 Balance 1300 / 1300 Lab / Micro Data 07/10/24 01:45 ROS Constitutional Constitutional: Reports systems reviewed and no addt'l complaints, except as documented Cardiovascular Cardiovascular: Reports systems reviewed and no addt'l complaints, except as documented Respiratory/Chest Respiratory/Chest: Reports systems reviewed and no addt'l complaints, except as documented Gastrointestinal Gastrointestinal: Reports systems reviewed and no addt'l complaints, except as documented Physical Exam Const alert, oriented x3 and no apparent distress HEENT Head and Scalp: atraumatic Resp normal respiratory effort GI soft to palpation and non-tender Bimanual Exam - Vag & Uterus: uterus non-tender Uterus Palpation: uterus fundus firm (below Umbilicus) Assessment & Plan (1) Vaginal delivery: COMMENT: SM IAL 40 boy Justin PLAN: Plan s/p PPD # 1 1. routine post delivery care 2. breast feeding- support given 3. rh positive 4. rubella immune
--- NOTE | 2024-07-11 09:55 | CASEMGMT ---
Labor and Delivery Case Management/ Social Work Sw completed chart review and acknowledges that patient has history of depression. Sw presented to bedside and met with patient and . Sw asked patient about mental health history. Pt states that she had depression when she was in high school, and that has resolved and she not longer struggles with depression. Patient states that she has a lot of family support as well as support from her . Sw discussed signs and symptoms of baby blues and mood and anxiety disorders. Patient reports that she is well versed in those issues and would know what to be on the lookout for. Patient reports that if she were to start to feel anxious or depressed she would talk about it immediately with and other supports. Patient's states that if patient were to struggle with her mental health during this period- or any other time- he would be able to recognize that she is struggling and he would know how to help and support her. Patient states that she has obtained all necessary baby items for baby and denies any needs, stressors or concerns at this time. Sw provided ongoing support, utilized active listening and congratulated parents on new arrival. No needs or concerns at this time. Patient and baby to be discharged when medically ready. Otto Dela Cruz, [employer], [employer]
[2024-07-11 13:03] VITALS: BP 103/67; PULSE 62; RESP 16; TEMP 36.4; O2SAT 98
[2024-07-11] MEDS: FLU VACC 2024-25(6MOS UP)/PF 45 MCG/0.5 ML SYRINGE IM (13:05)
[2024-07-11] MEDS: Senna/Docusate Sodium 1 Tablet PO (13:05)
== END 2024-07-11 14:40 | disposition home or self-care (01) | DRG 807 ==
LOC: WPOUT 01:41 → WP 01:41
PROVIDERS: Admitting Provider Obstetrics & Gynecology; PCP Internal Medicine; Referring Provider Obstetrics & Gynecology; Visit Provider Obstetrics & Gynecology
DX: O26.893 Other specified pregnancy related conditions, third trimester (principal); Z37.0 Single live birth; Z23 Encounter for immunization; O70.1 Second degree perineal laceration during delivery; Z67.11 Type A blood, Rh negative; Z3A.40 40 weeks gestation of pregnancy
CPT/HCPCS: 59025; 59050; 85025; 86780; 86850; 86900; 86901; 90656; 99221; J7120; G0378; J2405